=== PATIENT | female | born 1950 | race Asian ===

== ENCOUNTER 2019-08-23 14:46 | Emergency (ER) | payer OTHER ==
[~2019-08-23] VITALS: Ht 160 cm; Wt 55.3 kg
--- NOTE | 2019-08-23 14:48 | NUR ---
BIBRA 89 C/O LEFT RIB PAIN AND R KNEE PAIN S/P TRIPPED AND FALL WHILE PLAYING GOLF, PT IS AAOX4, NOT IN RESPIRATORY DISTRESS, HOOKED TO MONITOR, KEPT RESTED AND COMFORTABLE, WILL CONTINUE TO MONITOR. AWAITING ER MD FOR EVAL.
[2019-08-23] MEDS ORDERED: METO25TA6 PO (15:01)
[2019-08-23] MEDS ORDERED: ALEN70TA6 PO (15:01)
[2019-08-23] MEDS ORDERED: ATOR10TA PO (15:01)
[2019-08-23] MEDS ORDERED: RIZA10TA27 PO (15:01)
--- NOTE | 2019-08-23 15:02 | NUR ---
AT BEDSIDE FOR EVAL.
--- NOTE | 2019-08-23 15:10 | NUR ---
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
[2019-08-23 16:21] VITALS: BP 129/82
--- NOTE | 2019-08-23 16:21 | NUR ---
Patient discharged to home in stable condition. Written and verbal after care instructions given. Patient verbalizes understanding of instruction.
== END 2019-08-23 16:22 | disposition home or self-care (01) ==
LOC: ER 14:48
DX: S22.32XA Fracture of one rib, left side, initial encounter for closed fracture (principal); S80.211A Abrasion, right knee, initial encounter; G43.909 Migraine, unspecified, not intractable, without status migrainosus; E78.5 Hyperlipidemia, unspecified; Z91.048 Other nonmedicinal substance allergy status; Z79.899 Other long term (current) drug therapy; W01.0XXA Fall on same level from slipping, tripping and stumbling without subsequent striking against object, initial encounter; Y93.89 Activity, other specified; Y92.89 Other specified places as the place of occurrence of the external cause; Y99.8 Other external cause status
CPT/HCPCS: 71100-TC